=== PATIENT | male | born 1970 | race African-American/Black ===

== ENCOUNTER 2017-10-18 16:14 | Outpatient (CLI) | payer BC | END 2017-10-18 16:15 | disposition home or self-care (01) | LOC: BICRAD 16:14 | PROVIDERS: ATTEND Family Medicine | DX: S93.401D Sprain of unspecified ligament of right ankle, subsequent encounter (principal); M79.89 Other specified soft tissue disorders ==

== ENCOUNTER 2021-11-24 16:53 | Outpatient (CLI) | payer BC | END 2021-11-24 16:54 | disposition home or self-care (01) | LOC: SCSRAD 16:53 | PROVIDERS: ATTEND Family Medicine | DX: M47.22 Other spondylosis with radiculopathy, cervical region (principal); Z98.890 Other specified postprocedural states | CPT/HCPCS: 72040 ==

== ENCOUNTER 2021-12-02 14:27 | Outpatient (CLI) | payer BC | END 2021-12-02 14:28 | disposition home or self-care (01) | LOC: TBSIIMAG 14:27 | PROVIDERS: ATTEND Family Medicine | DX: M54.12 Radiculopathy, cervical region (principal); M25.78 Osteophyte, vertebrae; M48.02 Spinal stenosis, cervical region | CPT/HCPCS: 72040; 72141 ==

== ENCOUNTER 2022-03-16 08:38 | Outpatient (CLI) | payer BC | END 2022-03-16 08:39 | disposition home or self-care (01) | LOC: BICRAD 08:38 | PROVIDERS: ATTEND Neurological Surgery | DX: M47.22 Other spondylosis with radiculopathy, cervical region (principal); Z98.890 Other specified postprocedural states | CPT/HCPCS: 72040 ==